=== PATIENT | male | born 1930 | race Caucasian/White ===

== ENCOUNTER → 2017-04-04 | Outpatient (CLI) | payer MEDICARE, OTHER ==
[~2017-04-04] MED LIST: ASPIRIN (CHILDR81 MG PO; ATIVAN 1 MG1 MG PO; COLACE100 MG PO; COMBIGAN EYE DRO5 ML OPHTH; ECOTRIN325 MG PO; HYDRODIURIL25 MG PO; K-TAB ER20 MEQ PO; LEVOTHROID (SY50 MCG PO; LUMIGAN 0.01%2.5 ML OPHTH; LUTEIN40 MG PO; MIRALAX17 GM PO; NASOGEL NASAL S30 ML NOSE; NEURONTIN300 MG PO; NORCO 5-325 MG1 TAB PO; NORVASC10 MG PO; PRESERVISION A1 EAC2 PO; THERA-VITE W/ B1 TAB PO; VALIUM5 MG PO; VITAMIN B-121000 MCG PO; VITAMIN D-32000 UNI1 PO; XARELTO10 MG PO
== END | disposition disaster alternative care site (69) ==
LOC: GRAD 15:09
DX: R20.0 Anesthesia of skin (principal); G93.0 Cerebral cysts; R20.2 Paresthesia of skin

== ENCOUNTER → 2017-05-19 | Outpatient (CLI) | payer MEDICARE, OTHER | END | disposition disaster alternative care site (69) | LOC: GRAD 13:59 | DX: R20.0 Anesthesia of skin (principal); G93.0 Cerebral cysts; I67.89 Other cerebrovascular disease; K11.8 Other diseases of salivary glands | CPT/HCPCS: A9577 ==

== ENCOUNTER → 2017-05-22 | Outpatient (CLI) | payer MEDICARE, OTHER | END | disposition disaster alternative care site (69) | LOC: GRAD 10:25 | DX: R93.0 Abnormal findings on diagnostic imaging of skull and head, not elsewhere classified (principal); G93.0 Cerebral cysts; K11.6 Mucocele of salivary gland; R20.0 Anesthesia of skin | CPT/HCPCS: Q9967 ==

== ENCOUNTER → 2017-06-25 | Outpatient (CLI) | payer MEDICARE, OTHER | LOC: GOPD 06-24 | DX: D37.030 Neoplasm of uncertain behavior of the parotid salivary glands (principal); G93.0 Cerebral cysts ==